=== PATIENT | male | born 1980 ===

== ENCOUNTER 2018-07-14 17:18 | Emergency (ER) | payer BC ==
[2018-07-14 17:41] VITALS: BP 158/80; PULSE 88; RESP 16; TEMP 98.4; O2SAT 98
--- NOTE | 2018-07-14 18:19 | ED PDOC ---
HPI: Allergic Reaction Time Seen by Provider: 07/14/18 17:46 Chief Complaint (Nursing): Allergic Reaction Chief Complaint (Provider): Right tooth pain, swelling right lower jaw History Per: Patient History/Exam Limitations: no limitations Onset/Duration Of Symptoms: Days Current Symptoms Are (Timing): Still Present Additional Complaint(s): 38 yo male with no medical problems presents for evaluation of swelling to the right jaw. Pt states he has been taking motrin for dental pain and thought the swelling was due to allergic reaction. Pt reports taking motrin in the past. Pt denies fever/chills. No SOB. No swelling of lips or tongue. Past Medical History Reviewed: Historical Data, Nursing Documentation, Vital Signs Vital Signs: Last Vital Signs Temp 98.4 F 07/14/18 17:40 Pulse 88 07/14/18 17:40 Resp 16 07/14/18 17:40 BP 158/80 H 07/14/18 17:40 Pulse Ox 98 07/14/18 17:40 - Medical History PMH: No Chronic Diseases Other PMH: Denies PMH - Surgical History Surgical History: No Surg Hx - Family History Family History: States: No Known Family Hx - Living Arrangements Living Arrangements: With Family - Social History Current smoker - smoking cessation education provided: No - Home Medications Home Medications: Ambulatory Orders Medication Instructions Recorded Famotidine [Pepcid] 20 mg PO BID #28 tab 11/10/14 Ondansetron [Zofran] 4 mg PO Q8H #9 tab 11/10/14 Amoxicillin/Clavulanate [Augmentin 1 tab PO BID #20 tab 07/14/18 875 MG-125 MG] - Allergies Allergies/Adverse Reactions: Allergies Allergy/AdvReac Type Severity Reaction Status Date / Time No Known Allergies Allergy Verified 11/10/14 08:00 Review of Systems ROS Statement: Except As Marked, All Systems Reviewed And Found Negative Constitutional: Negative for: Fever, Chills ENT: Positive for: Other (Lower right dental pain ) Gastrointestinal: Negative for: Nausea, Vomiting, Abdominal Pain Neurological: Negative for: Weakness, Numbness Physical Exam - Reviewed Nursing Documentation Reviewed: Yes Vital Signs Reviewed: Yes - Physical Exam Appears: Positive for: Well, Non-toxic, No Acute Distress Head Exam: Positive for: ATRAUMATIC, NORMAL INSPECTION, NORMOCEPHALIC Skin: Positive for: Normal Color, Warm, DRY Eye Exam: Positive for: Normal appearance ENT: Negative for: Normal ENT Inspection ((+) dental fx with dental decay lower right ) Neck: Positive for: Normal Cardiovascular/Chest: Positive for: Regular Rate, Rhythm Respiratory: Positive for: Normal Breath Sounds. Negative for: Accessory Muscle Use, Respiratory Distress Back: Positive for: Normal Inspection Extremity: Positive for: Normal ROM Neurologic/Psych: Positive for: Alert, Oriented - ECG O2 Sat by Pulse Oximetry: 98 Pulse Ox Interpretation: Normal Disposition - Clinical Impression Clinical Impression: Dental decay - Patient ED Disposition Is Patient to be Admitted: No Counseled Patient/Family Regarding: Diagnosis, Need For Followup, Rx Given - Disposition Referrals: Full Time [facility] [Outside] Disposition: Routine/Home Disposition Time: 18:15 Condition: GOOD Prescriptions: Amoxicillin/Clavulanate [Augmentin 875 MG-125 MG] 1 tab PO BID #20 tab Instructions: Tooth Decay, Adult (DC)
== END 2018-07-14 18:38 | disposition home or self-care (01) ==
LOC: H.ER 17:18
DX: K02.9 Dental caries, unspecified (principal)